=== PATIENT | male | born 1955 | race Caucasian/White ===

== ENCOUNTER → 2024-10-29 | Outpatient (CLI) | payer MEDICARE, BC, SELFPAY ==
[2024-10-29 10:41] LABS: Free T3 2.5 pg/mL (2.3-4.2); Free T4 (Free Thyroxine) 0.77 ng/dL (0.89-1.76)
[2024-11-06 05:06] LABS: T3, Reverse, LC/MS/MS* 11 ng/dL (8-25)
== END | disposition home or self-care (01) ==
LOC: COPL 09:07
PROVIDERS: PCP Family Medicine; Referring Provider Family Medicine; Visit Provider Family Medicine
DX: E03.9 Hypothyroidism, unspecified (principal)
CPT/HCPCS: 36415; 84439; 84481; 84482